=== PATIENT | female | born 1965 | race Two or more races ===

== ENCOUNTER 2023-10-05 05:25 | Day surgery (SDC) | payer OTHER ==
[2023-10-05] MEDS ORDERED: MIDAZOLAM HCL 2 MG/2 ML VIAL IV ONE (10:45)
[2023-10-05] MEDS ORDERED: fentaNYL CITRATE 50 MCG/ML AMPUL IV PUSH ONE (10:45)
[2023-10-05] MEDS ORDERED: DIPHENHYDRAMINE HCL 50 MG/ML VIAL 1ML IV ONE (10:45)
== END 2023-10-05 13:15 | disposition home or self-care (01) ==
LOC: AMB-ENDOS 05:25 → CIR.AMB 13:30
PROVIDERS: ATTEND Surgery
DX: C20 Malignant neoplasm of rectum (principal)

== ENCOUNTER 2024-03-24 07:09 | Day surgery (SDC) | payer OTHER ==
[2024-03-24] MEDS ORDERED: MIDAZOLAM HCL 2 MG/2 ML VIAL IV ONE (10:45)
[2024-03-24] MEDS ORDERED: fentaNYL CITRATE 50 MCG/ML AMPUL IV PUSH ONE (10:45)
[2024-03-24] MEDS ORDERED: DIPHENHYDRAMINE HCL 50 MG/ML VIAL 1ML IV ONE (10:45)
== END 2024-03-24 11:50 | disposition home or self-care (01) ==
LOC: AMB-ENDOS 07:09
PROVIDERS: ATTEND Surgery
DX: C20 Malignant neoplasm of rectum (principal); K57.30 Diverticulosis of large intestine without perforation or abscess without bleeding

== ENCOUNTER 2024-05-04 12:15 | Inpatient (IN) | payer OTHER ==
[~2024-05-04] VITALS: Ht 61 cm; Wt 65.8 kg
[2024-05-12] MEDS ORDERED: POVIDONE-IODINE 118 ML BOTT TOP ONE (13:45)
[2024-05-12] MEDS ORDERED: METRONIDAZOLE/SODIUM CHLORIDE 500 MG/100 ML PIGGYBACK IV ONE (13:45)
[2024-05-12] MEDS ORDERED: BUPIVACAINE HCL 30 ML VIAL IJ ONE (13:45)
[2024-05-12] MEDS ORDERED: CEFTRIAXONE SODIUM 2,000 MG VIAL IV ONE (13:45)
[2024-05-12] MEDS ORDERED: LIDOCAINE HCL 1%/EPINEPHRINE 20ML VIAL IJ ONE (13:45)
[2024-05-12] MEDS ORDERED: DIBUCAINE 15 GM OINT..GM. TUBE RECTAL ONE (13:45)
[2024-05-12] MEDS ORDERED: HEMOSTATIC MATRIX 1 KIT KIT TOP ONE (14:00)
[2024-05-12] MEDS ORDERED: SUGAMMADEX SODIUM 200 MG/2 ML VIAL IV ONE (14:00)
[2024-05-12] MEDS ORDERED: MORPHINE SULFATE 4 MG/ML CARTRIDGE IV PRN (14:15)
[2024-05-12] MEDS ORDERED: DEXTROSE 50 % IN WATER 0.5 G/ML DISP.SYRIN IV PRN (14:15)
[2024-05-12] MEDS ORDERED: RINGERS SOLUTION,LACTATED 1,000 ML IV SCH (14:15)
[2024-05-12] MEDS ORDERED: ONDANSETRON HCL 2 MG/ML VIAL IV PRN (14:15)
[2024-05-12] MEDS ORDERED: OxyCODONE HCL 5 MG TABLET (ROXICODONE) PO PRN (14:15)
[2024-05-12] MEDS ORDERED: ENALAPRILAT DIHYDRATE 1.25 MG/ML VIAL IV PRN (15:30)
[2024-05-12] MEDS ORDERED: AMANTADINE 100 MG PO SCH (17:00)
[2024-05-12] MEDS ORDERED: REQUIP 2 MG PO SCH (17:00)
[2024-05-12] MEDS ORDERED: GABAPENTIN 300 MG CAPSULE PO SCH (17:00)
[2024-05-12] MEDS ORDERED: MORPHINE SULFATE 4 MG/ML VIAL IV ONE (17:15)
[2024-05-12 18:12] LABS: ALBUMIN 3.6 gm/dL (3.4-5.0); CALCIUM 9.2 mg/dL (8.5-10.1); CREATININE SERUM 0.76 mg/dL (0.55-1.02); GFR 78.16; MAGNESIUM 1.8 mg/dL (1.8-2.4); PHOSPHOROUS 4.4 mg/dL (2.5-4.9); POTASSIUM 4.16 mEq/L (3.5-5.1)
[2024-05-12 18:43] VITALS: BP 110/71; O2SAT 97
[2024-05-12 18:49] LABS: HEMATOCRIT 40.2 % (36.0-45.00); HEMOGLOBIN 13.4 g/dL (12.0-15.00); MEAN CELL VOLUME 91.3 fL (80.00-100.00); MEAN CORPUSCULAR HEMOGLOBIN 30.4 pg (27.00-32.0); MEAN CORPUSCULAR HGB CONC 33.3 g/dl (32.0-36.0); PLATELET COUNT 174 K/uL (150-450); RED BLOOD COUNT 4.41 M/uL (4.00-6.00); RED CELL DISTRIBUTION WIDTH 15.2 % (11.5-14.5)
[2024-05-12] MEDS ORDERED: ACETAMINOPHEN 500 MG GEL..CAP PO SCH (20:00)
[2024-05-12] MEDS ORDERED: FAMOTIDINE/PF 20 MG/2 ML VIAL IV PUSH SCH (21:00)
[2024-05-13 00:54] VITALS: BP 119/74; O2SAT 98
[2024-05-13 07:39] LABS: HEMATOCRIT 35.8 % (36.0-45.00); HEMOGLOBIN 12.3 g/dL (12.0-15.00); MEAN CELL VOLUME 89.4 fL (80.00-100.00); MEAN CORPUSCULAR HEMOGLOBIN 30.7 pg (27.00-32.0); MEAN CORPUSCULAR HGB CONC 34.3 g/dl (32.0-36.0); PLATELET COUNT 195 K/uL (150-450); RED BLOOD COUNT 4.01 M/uL (4.00-6.00); RED CELL DISTRIBUTION WIDTH 14.7 % (11.5-14.5)
[2024-05-13 07:54] LABS: ALBUMIN 3.2 gm/dL (3.4-5.0); CALCIUM 8.5 mg/dL (8.5-10.1); CREATININE SERUM 0.72 mg/dL (0.55-1.02); GFR 83.2; MAGNESIUM 1.6 mg/dL (1.8-2.4); POTASSIUM 3.35 mEq/L (3.5-5.1)
[2024-05-13] MEDS ORDERED: LOSARTAN POTASSIUM 100 MG TABLET PO SCH (09:00)
[2024-05-13 09:18] VITALS: BP 91/59; O2SAT 97
[2024-05-13] MEDS ORDERED: AMOX1TAB5 PO (10:54)
[2024-05-13] MEDS ORDERED: INTESTINEX680 M1 PO (10:54)
[2024-05-13] MEDS ORDERED: MAGNESIUM SULFATE IN WATER 50 ML IV NR (11:45)
[2024-05-13] MEDS ORDERED: POTASSIUM CHLORIDE 20MEQ/100ML H2O PB IV NR (11:45)
[2024-05-13] MEDS ORDERED: POLYETHYLENE GLYCOL 3350 17 GM BLIST.PACK PO SCH (12:00)
[2024-05-13] MEDS ORDERED: POTASSIUM CHLORIDE 8 MEQ TABLET PO STA (13:10)
[2024-05-13] MEDS ORDERED: MAGNESIUM CHLORIDE 70 MG TABLET.DR PO STA (13:10)
[2024-05-13] MEDS ORDERED: ATORVASTATIN CALCIUM 40 MG TABLET PO SCH (17:00)
[2024-05-14] MEDS ORDERED: ENOXAPARIN SODIUM 40 MG/0.4 ML SYRINGE SUBCUTANEO SCH (09:00)
== END 2024-05-13 16:53 | disposition home or self-care (01) | DRG 349 ==
LOC: O/R 05-12 06:53 → SURH 05-12 07:00
PROVIDERS: ADMIT Surgery; ATTEND Surgery
PROC: 0DBP7ZZ Excision of Rectum, Via Natural or Artificial Opening (ICD-10-PCS; principal; 2024-05-12 07:00)
DX: C20 Malignant neoplasm of rectum (principal); K62.82 Dysplasia of anus; I11.9 Hypertensive heart disease without heart failure; Z92.21 Personal history of antineoplastic chemotherapy; G20.A1 Parkinson's disease without dyskinesia, without mention of fluctuations; Z92.3 Personal history of irradiation